=== PATIENT | male | born 1985 | race American Indian/Alaskan Native ===

== ENCOUNTER 2019-07-13 05:24 | Emergency (ER) | payer SELFPAY ==
[2019-07-13] MEDS ORDERED: ALBUTEROL 2.5 MG/3 ML NEBU IH ONE ×2 (06:02→08:12)
[2019-07-13] MEDS ORDERED: IPRATROPIUM 0.02% NEBU 2.5 ML IH ONE (06:02)
[2019-07-13] MEDS ORDERED: predniSONE 20 MG TAB PO ONE (06:02)
--- NOTE | 2019-07-13 06:23 | Emergency Department Report ---
HPI - General Chief Complaint: Dyspnea/Respdistress Time Seen by Provider: 07/13/19 05:58 - HPI HPI: 34-year-old -Irish male presents to the emergency department with a few days of some shortness of breath, wheezing, mixed dry and productive cough. He denies any fever, chest pain, lower extremity swelling, or diaphoresis. He says he is an occasional tobacco smoker. He has a past medical history of bronchitis. He has both an inhaler and nebulizer at home that he has been using without any relief. No recent travel or sick contacts at home. He does not have a primary care physician. ED Past Medical Hx - Past Medical History Previous Medical History?: No - Surgical History Past Surgical History?: No - Social History Smoking Status: Current Every Day Smoker Substance Use Type: Marijuana - Medications Home Medications: Home Medications Medication Instructions Recorded Confirmed Last Taken Type ALBUTEROL Inhaler (OR & NICU) 2 puff IH QID PRN #1 inhalation 07/13/19 Unknown Rx [ProAir HFA Inhaler] ALBUTEROL NEB's [Proventil 0.083% 2.5 mg IH TID PRN #1 box 07/13/19 Unknown Rx NEBS] predniSONE [Deltasone] 20 mg PO BID #10 tab 07/13/19 Unknown Rx ED Review of Systems ROS: Stated complaint: SOB Other details as noted in HPI Comment: All other systems reviewed and negative Constitutional: denies: chills, fever Eyes: denies: eye pain, vision change ENT: denies: ear pain, throat pain Respiratory: cough, shortness of breath, wheezing Cardiovascular: denies: chest pain, edema Gastrointestinal: denies: abdominal pain, vomiting Genitourinary: denies: urgency, dysuria Musculoskeletal: denies: back pain, arthralgia Skin: denies: rash, lesions Neurological: denies: headache, weakness Physical Exam - Physical Exam Vital Signs: Vital Signs 07/13/19 05:35 Temperature 97.7 F Pulse Rate 93 H Respiratory 16 Rate Blood Pressure 150/96 Blood Pressure 150/96 [Left] O2 Sat by Pulse 96 Oximetry Physical Exam: GENERAL: The patient is well-developed well-nourished. HENT: Normocephalic. Atraumatic. Patient has moist mucous membranes. EYES: Extraocular motions are intact. NECK: Supple. Trachea is midline. CHEST/LUNGS: Moderate wheezing throughout the chest. No tachypnea or accessory muscle use. There is no respiratory distress noted. HEART/CARDIOVASCULAR: Regular. There is no tachycardia. There is no murmur. ABDOMEN: Abdomen is soft, nontender. Patient has normal bowel sounds. There is no abdominal distention. SKIN: Skin is warm and dry. NEURO: The patient is awake, alert, and oriented. The patient is cooperative. The patient has no focal neurologic deficits. Normal speech. MUSCULOSKELETAL: There is no tenderness or deformity. There is no evidence of acute injury. ED Course Vital Signs 07/13/19 05:35 Temperature 97.7 F Pulse Rate 93 H Respiratory 16 Rate Blood Pressure 150/96 Blood Pressure 150/96 [Left] O2 Sat by Pulse 96 Oximetry ED Medical Decision Making - Lab Data Result diagrams: 07/13/19 06:05 07/13/19 06:05 - Radiology Data Radiology results: image reviewed interpreted by me: Chest x-ray does not show any acute process. There are no pleural effusions, obvious pneumonia and there is no pneumothorax. - Medical Decision Making Patient presents with some moderate bronchospasm but does not appear in any respiratory distress. He only had a slight improvement after the first round of nebulized treatments but basically had complete resolution of his symptoms after the second round of albuterol. Patient received prednisone and magnesium. Chest x-ray did not show any pleural effusions, pneumonia, pneumothorax, or any other acute process. Labs were unremarkable. Vital signs stable throughout his ED course including being afebrile and no hypoxia. He will be discharged home with a 5 day course of steroids, a refill of his albuterol inhaler and nebulizer, and referrals for primary care. He has been instructed to return to the ER with any worsening of his symptoms or any acute distress. We discussed smoking cessation. - Differential Diagnosis asthma, pneumonia, bronchitis, CHF Critical Care Time: No Critical care attestation.: If time is entered above; I have spent that time in minutes in the direct care of this critically ill patient, excluding procedure time. ED Disposition Clinical Impression: Bronchospasm Acute bronchitis Qualifiers: Bronchitis organism: unspecified organism Qualified Code(s): J20.9 - Acute bronchitis, unspecified Disposition: DC-01 TO HOME OR SELFCARE Is pt being admited?: No Condition: Stable Instructions: How to Stop Smoking (ED), Acute Bronchitis (ED), Bronchospasm (ED) Additional Instructions: Please follow-up with a primary care physician in the next few days. Return to the emergency Department with any worsening of your symptoms or any acute d istress. Please quit smoking. Prescriptions: predniSONE [Deltasone] 20 mg PO BID #10 tab ALBUTEROL Inhaler (OR & NICU) [ProAir HFA Inhaler] 2 puff IH QID PRN #1 inhalation PRN Reason: Shortness Of Breath ALBUTEROL NEB's [Proventil 0.083% NEBS] 2.5 mg IH TID PRN #1 box PRN Reason: Wheezing Referrals: KRISTEN DENIS MD [Staff Physician] - 2-3 Days [facility] [Outside] - 2-3 Days Time of Disposition: 09:40
[2019-07-13 06:36] LABS: Basophils # (Auto) 0.1 K/mm3 (0.0-0.1); Basophils % (Auto) 0.7 % (0.0-1.8); Eosinophils # (Auto) 0.5 K/mm3 (0.0-0.4); Eosinophils % (Auto) 7.1 % (0.0-4.3); Hematocrit 40.2 % (35.5-45.6); Hemoglobin 13.3 gm/dl (11.8-15.2); Lymphocytes # (Auto) 2.4 K/mm3 (1.2-5.4); Lymphocytes % (Auto) 32.6 % (13.4-35.0); Mean Corpuscular HGB Conc 33 % (32-34); Mean Corpuscular Volume 91 fl (84-94); Monocytes # (Auto) 0.5 K/mm3 (0.0-0.8); Monocytes % (Auto) 7.1 % (0.0-7.3); Platelet Count 269 K/mm3 (140-440); Red Blood Count 4.41 M/mm3 (3.65-5.03); Red Cell Distribution Width 13.5 % (13.2-15.2)
[2019-07-13 07:00] LABS: BUN/Creatinine Ratio 17; Blood Urea Nitrogen 12 mg/dL (9-20); Calcium 8.9 mg/dL (8.4-10.2); Hemolysis Index 12
[2019-07-13] MEDS ORDERED: SODIUM CHLORIDE 0.9% 1000 ML 1,000 ML IV ONE (07:19)
[2019-07-13] MEDS ORDERED: MAGNESIUM SULFATE 2 GM/50 ML BAG IV ONE (07:19)
--- NOTE | 2019-07-13 08:08 | XRay Report ---
CHEST 2 VIEWS INDICATION: Shortness of breath. COMPARISON: FINDINGS: Support devices: None. Heart: Within normal limits. Lungs/pleura: No acute air space or interstitial disease. No pneumothorax. Additional findings: None. IMPRESSION: No acute cardiopulmonary process identified. Signer Name: Erickson Quintero Jr, MD Signed: 07/13/2019 8:04 AM Workstation Name: [id number]
[2019-07-13 10:10] VITALS: BP 132/96
== END 2019-07-13 10:10 | disposition home or self-care (01) ==
LOC: ED 05:24
DX: J20.9 Acute bronchitis, unspecified (principal); F17.200 Nicotine dependence, unspecified, uncomplicated
CPT/HCPCS: 36415; 71046; 80048; 85025; 94640; 94644; 96365; 99284; J3475; J7030; J7512

== ENCOUNTER 2020-08-15 11:16 | Emergency (ER) | payer SELFPAY ==
[2020-08-15] MEDS ORDERED: IPRATROPIUM 0.02% NEBU 2.5 ML IH ONE (11:19)
[2020-08-15] MEDS ORDERED: ALBUTEROL 2.5 MG/3 ML NEBU IH ONE (11:19)
[2020-08-15 11:20] VITALS: BP 128/81
[2020-08-15] MEDS ORDERED: methylPREDNISolone Sod Succinate 125 MG/2 ML INJ IV ONE (11:20)
--- NOTE | 2020-08-15 11:54 | XRay Report ---
CHEST 1 VIEW INDICATION: asthma exacerbation, SOB. COMPARISON: 07/13/2019 FINDINGS: Support devices: None. Heart: Within normal limits. Lungs/Pleura: No acute air space or interstitial disease. Additional findings: None. IMPRESSION: Normal AP chest Signer Name: Erickson Quintero Jr, MD Signed: 08/15/2020 11:50 AM Workstation Name: [id number]
--- NOTE | 2020-08-15 12:01 | Emergency Department Report ---
ED Asthma HPI - General Chief Complaint: Adult Asthma Stated Complaint: CHEST/FRANKY Time Seen by Provider: 08/15/20 11:19 Source: patient Mode of arrival: Ambulatory Limitations: No Limitations - History of Present Illness Initial Comments: This is a pleasant 35-year-old male presents the emergency department chief complaint of tightness in his chest and shortness of breath. Patient has past medical history of asthma and usually uses his rescue inhaler with improvement in his symptoms however he has been trying over the past few days and had no improvement. He reports she has been dealing with his asthma for many years where he will have flareups like this that will require him to come to the emergency department. He denies any history of intubation or admission. He denies any fever, chills, night sweats, headache, dizziness, or vision, nausea, vomiting, diarrhea, productive cough or any other associated symptoms. - Related Data Previous Rx's Medication Instructions Recorded Last Taken Type ALBUTEROL NEB's [Proventil 0.083% 2.5 mg IH TID PRN #1 box 07/13/19 Unknown Rx NEBS] Albuterol Mdi (or & Nicu Only) 2 puff IH QID PRN #1 inhalation 07/13/19 Unknown Rx [ProAir HFA Inhaler] predniSONE [Deltasone] 20 mg PO BID #10 tab 07/13/19 Unknown Rx Albuterol Sulfate [Proventil Hfa] 6.7 gm IH Q4HR PRN #1 hfa.aer.ad 08/15/20 Unknown Rx Ipratropium/Albuterol Sulfate 1 ampul IH Q4HR #30 ampul.neb 08/15/20 Unknown Rx [DUONEB *Not for PRN Use*] Loratadine [Claritin] 10 mg PO DAILY #30 tablet 08/15/20 Unknown Rx predniSONE [Deltasone] 50 mg PO QDAY #5 tab 08/15/20 Unknown Rx Allergies Allergy/AdvReac Type Severity Reaction Status Date / Time No Known Allergies Allergy Unverified 07/13/19 07:00 ED Review of Systems ROS: Stated complaint: CHEST/FRANKY Other details as noted in HPI Comment: All other systems reviewed and negative Constitutional: denies: chills, fever Eyes: denies: eye pain, eye discharge, vision change ENT: denies: ear pain, throat pain Respiratory: see HPI, wheezing. denies: cough, shortness of breath Cardiovascular: denies: chest pain, palpitations Endocrine: no symptoms reported Gastrointestinal: denies: abdominal pain, nausea, diarrhea Genitourinary: denies: urgency, dysuria Musculoskeletal: denies: back pain, joint swelling, arthralgia Skin: denies: rash, lesions Neurological: denies: headache, weakness, paresthesias Psychiatric: denies: anxiety, depression Hematological/Lymphatic: denies: easy bleeding, easy bruising ED Past Medical Hx - Past Medical History Previous Medical History?: Yes Hx Asthma: Yes - Surgical History Past Surgical History?: No - Family History Family history: no significant - Social History Smoking Status: Current Every Day Smoker Substance Use Type: Marijuana - Medications Home Medications: Home Medications Medication Instructions Recorded Confirmed Last Taken Type ALBUTEROL NEB's [Proventil 0.083% 2.5 mg IH TID PRN #1 box 07/13/19 Unknown Rx NEBS] Albuterol Mdi (or & Nicu Only) 2 puff IH QID PRN #1 inhalation 07/13/19 Unknown Rx [ProAir HFA Inhaler] predniSONE [Deltasone] 20 mg PO BID #10 tab 07/13/19 Unknown Rx Albuterol Sulfate [Proventil Hfa] 6.7 gm IH Q4HR PRN #1 hfa.aer.ad 08/15/20 Unknown Rx Ipratropium/Albuterol Sulfate 1 ampul IH Q4HR #30 ampul.neb 08/15/20 Unknown Rx [DUONEB *Not for PRN Use*] Loratadine [Claritin] 10 mg PO DAILY #30 tablet 08/15/20 Unknown Rx predniSONE [Deltasone] 50 mg PO QDAY #5 tab 08/15/20 Unknown Rx ED Physical Exam - General Limitations: No Limitations General appearance: alert, in no apparent distress - Head Head exam: Present: atraumatic, normocephalic - Eye Eye exam: Present: normal appearance, PERRL, EOMI Pupils: Present: normal accommodation - ENT ENT exam: Present: normal exam, normal orophraynx, mucous membranes moist - Neck Neck exam: Present: normal inspection, full ROM. Absent: tenderness, meningismus - Respiratory Respiratory exam: Present: normal lung sounds bilaterally, respiratory distress, wheezes, other (Bilateral in-store expiratory wheezing with tachypnea. No retractions or tripoding. Speaking in complete sentences.). Absent: rales, rhonchi, stridor - Cardiovascular Cardiovascular Exam: Present: regular rate, normal rhythm, normal heart sounds. Absent: systolic murmur, diastolic murmur, rubs, gallop - GI/Abdominal GI/Abdominal exam: Present: soft, normal bowel sounds. Absent: distended, tenderness, guarding, rebound, rigid - Rectal Rectal exam: Present: deferred - Extremities Exam Extremities exam: Present: normal inspection, full ROM, normal capillary refill. Absent: tenderness, calf tenderness (Negative Homans' sign bilaterally) - Back Exam Back exam: Present: normal inspection, full ROM. Absent: tenderness, CVA tenderness (R), CVA tenderness (L) - Neurological Exam Neurological exam: Present: alert, oriented X3 - Psychiatric Psychiatric exam: Present: normal affect, normal mood - Skin Skin exam: Present: warm, dry, intact, normal color. Absent: rash ED Course Vital Signs 08/15/20 11:20 Temperature 98.3 F Pulse Rate 100 H Respiratory 26 H Rate Blood Pressure 128/81 [Right] O2 Sat by Pulse 93 Oximetry ED Medical Decision Making - Radiology Data Radiology results: report reviewed, image reviewed XRay Report Signed Patient: SUNNY CHANDLER MR#: [id number] : 1985 Acct:[id number] Age/Sex: 35 / M ADM Date: 08/15/20 Loc: ED Attending Dr: Ordering Physician: GISELLE CARSON Date of Service: 08/15/20 Procedure(s): XR chest 1V ap Accession Number(s): [id number] cc: GISELLE CARSON Fluoro Time In Minutes: CHEST 1 VIEW INDICATION: asthma exacerbation, SOB. COMPARISON: 07/13/2019 FINDINGS: Support devices: None. Heart: Within normal limits. Lungs/Pleura: No acute air space or interstitial disease. Additional findings: None. IMPRESSION: Normal AP chest Signer Name: Erickson Quintero Jr, MD Signed: 08/15/2020 11:50 AM Workstation Name: [id number] Transcribed By: TTR Dictated By: ERICKSON QUINTERO JR, MD Electronically Authenticated By: ERICKSON QUINTERO JR, MD Signed Date/Time: 08/15/20 1150 - Medical Decision Making Patient presented with wheezing and slightly decreased O2 at 93%. His work-up lungs showed instrument expiratory wheezing. He was given a hard neb of 10 of albuterol and 1 of Atrovent, 125 mg of IV Solu-Medrol and 2 g of IV magnesium and on reevaluation he feels much better. After multiple reevaluations he has improved significantly. He is now 99% on room air with no supplemental oxygen and feels better would like to go home. An x-ray of his chest was clear showing no acute findings. I will send him home with a refill of his rescue inhaler, DuoNeb for his nebulizer, oral steroids and antihistamines and recommended follow-up with his pulmonary doctor or his primary care doctor. He was instructed to return to the emergency department if he develops any change or worsening symptoms. He verbalized understanding of the diagnosis, treatment plan and follow-up instructions and all his questions were answered. - Differential Diagnosis Status asthmaticus, pneumothorax, pneumonia, COVID-19 Critical care attestation.: If time is entered above; I have spent that time in minutes in the direct care of this critically ill patient, excluding procedure time. ED Disposition Clinical Impression: Acute asthma exacerbation Qualifiers: Asthma severity: moderate Asthma persistence: persistent Qualified Code(s): J45.41 - Moderate persistent asthma with (acute) exacerbation Disposition: -01 TO HOME OR SELFCARE Is pt being admited?: No Condition: Stable Instructions: Asthma, Adult Prescriptions: Loratadine [Claritin] 10 mg PO DAILY #30 tablet predniSONE [Deltasone] 50 mg PO QDAY #5 tab Ipratropium/Albuterol Sulfate [DUONEB *Not for PRN Use*] 1 ampul IH Q4HR #30 ampul.neb Albuterol Sulfate [Proventil Hfa] 6.7 gm IH Q4HR PRN #1 hfa.aer.ad PRN Reason: Wheezing Referrals: PRIMARY CAREMD [Primary Care Provider] - 3-5 Days RICKY JUAN MD [Staff Physician] - 3-5 Days SHINE WILSON MD [Staff Physician] - 3-5 Days Forms: Work/School Release Form(ED) Time of Disposition: 14:26
[2020-08-15] MEDS ORDERED: MAGNESIUM SULFATE 2 GM/50 ML BAG IV ONE (13:19)
== END 2020-08-15 14:35 | disposition home or self-care (01) ==
LOC: ED 11:16
DX: J45.901 Unspecified asthma with (acute) exacerbation (principal); F17.200 Nicotine dependence, unspecified, uncomplicated; F12.10 Cannabis abuse, uncomplicated; Z79.899 Other long term (current) drug therapy
CPT/HCPCS: 71045; 94644; 96365; 96375; 99283; J2930; J3475

== ENCOUNTER 2022-02-18 03:26 | Emergency (ER) | payer SELFPAY ==
[2022-02-18] MEDS ORDERED: ALBUTEROL 2.5 MG/3 ML NEBU IH ONE ×3 (05:13→08:45)
[2022-02-18] MEDS ORDERED: IPRATROPIUM/ALBUTEROL SULFATE 3 ML AMPUL.NEB IH ONE (06:45)
[2022-02-18] MEDS ORDERED: MAGNESIUM SULFATE 2 GM/50 ML BAG IV ONE (06:47)
--- NOTE | 2022-02-18 07:11 | XRay Report ---
CHEST 1 VIEW INDICATION / CLINICAL INFORMATION: WHEEZING AND SOB. COMPARISON: None available. FINDINGS: SUPPORT DEVICES: None. HEART / MEDIASTINUM: No significant abnormality. LUNGS / PLEURA: No significant pulmonary abnormality. BONES: No significant osseous abnormality. ADDITIONAL FINDINGS: No significant additional findings. IMPRESSION: 1. No active cardiopulmonary disease. Signer Name: Yomi Ross II, MD Signed: 02/18/2022 7:06 AM Workstation Name: [id number]
--- NOTE | 2022-02-18 07:35 | Emergency Department Report ---
ED Shortness of Breath HPI - General Chief Complaint: Adult Asthma Stated Complaint: SOB Time Seen by Provider: 02/18/22 06:20 Source: patient Mode of arrival: Stretcher Limitations: No Limitations - History of Present Illness Initial Comments: 36-year-old male with a past medical history of bronchitis (persistently denies asthma) presents to the hospital complaints of wheezing and shortness of breath x2 weeks days. Patient using home bronchodilators without improvement. He received albuterol 5 via EMS and Solu-Medrol with slight improvement. Initial O2 saturation as per triage was 88% on 2 L nasal cannula. Patient complains of mild occasional cough. Denies smoking cigarettes or marijuana. Denies previous history of intubations, Dizziness, or leg edema. - Related Data Previous Rx's Medication Instructions Recorded Last Taken Type Albuterol Sulfate [Proventil Hfa] 6.7 gm IH Q4HR PRN #1 hfa.aer.ad 08/15/20 Unknown Rx Ipratropium/Albuterol Sulfate 1 ampul IH Q4HR #30 ampul.neb 08/15/20 Unknown Rx [DUONEB *Not for PRN Use*] Loratadine [Claritin] 10 mg PO DAILY #30 tablet 08/15/20 Unknown Rx predniSONE [Deltasone] 50 mg PO QDAY #5 tab 08/15/20 Unknown Rx ALBUTEROL NEB's [Proventil 0.083% 2.5 mg IH TID PRN #1 box 02/18/22 Unknown Rx NEBS] Albuterol Mdi (or & Nicu Only) 2 puff IH QID PRN #1 inhalation 02/18/22 Unknown Rx [ProAir HFA Inhaler] predniSONE [Deltasone] 40 mg PO QDAY 5 Days tab 02/18/22 Unknown Rx Allergies Allergy/AdvReac Type Severity Reaction Status Date / Time No Known Allergies Allergy Unverified 07/13/19 07:00 ED Review of Systems ROS: Stated complaint: SOB Other details as noted in HPI Comment: All other systems reviewed and negative ED Past Medical Hx - Past Medical History Previous Medical History?: Yes Hx Asthma: Yes Additional medical history: Bronchitis - Surgical History Past Surgical History?: No - Social History Smoking Status: Current Every Day Smoker Substance Use Type: None - Medications Home Medications: Home Medications Medication Instructions Recorded Confirmed Last Taken Type Albuterol Sulfate [Proventil Hfa] 6.7 gm IH Q4HR PRN #1 hfa.aer.ad 08/15/20 Unknown Rx Ipratropium/Albuterol Sulfate 1 ampul IH Q4HR #30 ampul.neb 08/15/20 Unknown Rx [DUONEB *Not for PRN Use*] Loratadine [Claritin] 10 mg PO DAILY #30 tablet 08/15/20 Unknown Rx predniSONE [Deltasone] 50 mg PO QDAY #5 tab 08/15/20 Unknown Rx ALBUTEROL NEB's [Proventil 0.083% 2.5 mg IH TID PRN #1 box 02/18/22 Unknown Rx NEBS] Albuterol Mdi (or & Nicu Only) 2 puff IH QID PRN #1 inhalation 02/18/22 Unknown Rx [ProAir HFA Inhaler] predniSONE [Deltasone] 40 mg PO QDAY 5 Days tab 02/18/22 Unknown Rx ED Physical Exam - General Limitations: No Limitations - Other Other exam information: General: Mild respiratory distress Head: Atraumatic Eyes: normal appearance ENT: Moist mucous membranes Neck: Normal appearance, no midline tenderness Chest: Audible wheezing, chest tightness, tachypnea. Currently receiving albuterol CV: mild tachycardia regular rate Abdomen: Soft, normal bowel sounds, nontender, nondistended, no rebound or guarding Back: Normal inspection Extremity: Normal inspection, full range of motion, no calf tenderness or leg edema Neuro: Alert O x 3, no facial asymmetry, speech clear, no gross motor sensory deficit Psych: Appropriate behavior Skin: No rash ED Course Vital Signs 02/18/22 02/18/22 02/18/22 04:11 04:47 05:01 Temperature 98 F Pulse Rate 105 H 103 H Pulse Rate [ Anterior] Respiratory 18 18 22 Rate Respiratory Rate [Anterior] Blood Pressure 136/90 Blood Pressure [Left] O2 Sat by Pulse 88 92 Oximetry 02/18/22 02/18/22 02/18/22 05:15 05:22 05:26 Temperature Pulse Rate 98 H Pulse Rate [ 93 H Anterior] Respiratory 23 Rate Respiratory 24 Rate [Anterior] Blood Pressure Blood Pressure [Left] O2 Sat by Pulse 91 94 Oximetry 02/18/22 02/18/22 02/18/22 05:31 05:45 06:01 Temperature Pulse Rate 100 H 112 H 92 H Pulse Rate [ Anterior] Respiratory 22 29 H 24 Rate Respiratory Rate [Anterior] Blood Pressure Blood Pressure [Left] O2 Sat by Pulse 95 98 91 Oximetry 02/18/22 02/18/22 02/18/22 06:15 06:31 06:45 Temperature Pulse Rate 91 H 100 H 113 H Pulse Rate [ Anterior] Respiratory 23 21 27 H Rate Respiratory Rate [Anterior] Blood Pressure Blood Pressure [Left] O2 Sat by Pulse 94 92 93 Oximetry 02/18/22 02/18/22 02/18/22 07:01 07:15 07:31 Temperature Pulse Rate 93 H 105 H 106 H Pulse Rate [ Anterior] Respiratory 23 21 21 Rate Respiratory Rate [Anterior] Blood Pressure Blood Pressure [Left] O2 Sat by Pulse 91 87 Oximetry 02/18/22 02/18/22 02/18/22 07:32 07:45 08:01 Temperature Pulse Rate 97 H 102 H Pulse Rate [ 105 H Anterior] Respiratory 21 26 H Rate Respiratory 18 Rate [Anterior] Blood Pressure Blood Pressure [Left] O2 Sat by Pulse 96 91 Oximetry 02/18/22 02/18/22 02/18/22 08:15 08:31 08:45 Temperature Pulse Rate 104 H 116 H 105 H Pulse Rate [ Anterior] Respiratory 22 17 24 Rate Respiratory Rate [Anterior] Blood Pressure Blood Pressure [Left] O2 Sat by Pulse 90 90 91 Oximetry 02/18/22 02/18/22 02/18/22 09:00 09:01 09:15 Temperature Pulse Rate 96 H 95 H Pulse Rate [ 115 H Anterior] Respiratory 13 19 Rate Respiratory 18 Rate [Anterior] Blood Pressure Blood Pressure [Left] O2 Sat by Pulse Oximetry 02/18/22 02/18/22 02/18/22 09:31 09:45 10:01 Temperature Pulse Rate 93 H 104 H 104 H Pulse Rate [ Anterior] Respiratory 18 23 16 Rate Respiratory Rate [Anterior] Blood Pressure Blood Pressure [Left] O2 Sat by Pulse 96 Oximetry 02/18/22 02/18/22 02/18/22 10:15 10:26 10:27 Temperature 97.9 F Pulse Rate 113 H 92 H Pulse Rate [ Anterior] Respiratory 17 20 20 Rate Respiratory Rate [Anterior] Blood Pressure Blood Pressure 144/81 [Left] O2 Sat by Pulse 92 94 94 Oximetry - Reevaluation(s) Reevaluation #1: 02/18/22 08:44 Patient reports feeling better. Still has persistent wheezing. Room air saturation 94 to 95%. Additional nebs will be provided and patient will be reassessed 02/18/22 10:19 Patient still has significant wheezing. Reports feeling better. Room air saturation 93 to 94% at rest. Will obtain ambulatory saturation and reassess 02/18/22 10:29 Although patient has wheezing he tolerates ambulation without difficulty. Room air saturation 94% with ambulation. He states he always has some residual wheezing. He insists he feels good enough for discharge. He will be discharged with [facility] ED Medical Decision Making - Radiology Data Radiology results: report reviewed CHEST 1 VIEW INDICATION / CLINICAL INFORMATION: WHEEZING AND SOB. COMPARISON: None available. FINDINGS: SUPPORT DEVICES: None. HEART / MEDIASTINUM: No significant abnormality. LUNGS / PLEURA: No significant pulmonary abnormality. BONES: No significant osseous abnormality. ADDITIONAL FINDINGS: No significant additional findings. IMPRESSION: 1. No active cardiopulmonary disease. Critical Care Time: No Critical care attestation.: If time is entered above; I have spent that time in minutes in the direct care of this critically ill patient, excluding procedure time. ED Disposition Clinical Impression: Acute asthmatic bronchitis Disposition: HOME / SELF CARE / HOMELESS Is pt being admited?: No Does the pt Need Aspirin: No Condition: Stable Instructions: Acute Bronchitis (ED), Asthma, Adult Additional Instructions: Take the medication as prescribed. Follow-up with your doctor or doctor/clinic provided. Return if symptoms worsen as indicated by your discharge instructions. Prescriptions: predniSONE [Deltasone] 40 mg PO QDAY 5 Days tab Albuterol Mdi (or & Nicu Only) [ProAir HFA Inhaler] 2 puff IH QID PRN #1 inhalation PRN Reason: Shortness Of Breath ALBUTEROL NEB's [Proventil 0.083% NEBS] 2.5 mg IH TID PRN #1 box PRN Reason: Wheezing Referrals: JUAN REARDON MD [Staff Physician] - 3-5 Days [facility] [Provider Group] - 3-5 Days Time of Disposition: 10:31
[2022-02-18 10:27] VITALS: BP 144/81
== END 2022-02-18 10:39 | disposition home or self-care (01) ==
LOC: ED 03:26
DX: J45.909 Unspecified asthma, uncomplicated (principal); F17.200 Nicotine dependence, unspecified, uncomplicated; Z79.899 Other long term (current) drug therapy
CPT/HCPCS: 71045; 94640; 94644; 96365; 99284; J3475